=== PATIENT | female | born 1985 | race Caucasian/White ===

== ENCOUNTER 2017-12-09 22:14 | Emergency (ER) | payer SELFPAY ==
[2017-12-09 22:27] VITALS: BP 136/90
--- NOTE | 2017-12-09 22:28 | EDPHY ---
H & P Stated Complaint: cat scratches to all extremities and pelvis area. Time Seen by Provider: 12/09/17 22:28 HPI/ROS: HPI CHIEF COMPLAINT: Multiple cat scratches HISTORY OF PRESENT ILLNESS: This is a very pleasant 31-year-old female, she is otherwise healthy denies significant medical history except for migraines, presents to the emergency room, after her own personal CT she was walking on the leash and a dog came up to them this caused the CT to jump into her lap and arms and scratching her bilateral forearms, and groin region. She denies the cab biting her. She has some mild redness on the scratches around her arms, additionally on the right 3rd digit there is some erythema. Appears to look like an early paronychia however patient denies this and states the cat scratched her on this finger. There is no evidence of deep space hand infection on exam and no evidence of sausage digit. However I explained to the patient she should watch this area very closely. Do warm compresses take Augmentin as prescribed. Additionally if she has worsening symptoms including pain, fever, swelling, redness or not doing well she should return emergency room immediately she understands this. Patient is checking to see if her tetanus shot is up-to-date. Past Medical History: Migraine headache Past Surgical History: No recent surgery Social History: Denies drugs, alcohol, tobacco. Family History: Noncontributory ROS REVIEW OF SYSTEMS: 10 Systems were reviewed and negative with the exception of the elements mentioned in the history of present illness. Exam Constitutional triage nursing summary reviewed, vital signs reviewed, awake/ alert. Eyes normal conjunctivae and sclera, EOMI, PERRLA. HENT normal inspection, atraumatic, moist mucus membranes, no epistaxis, neck supple/ no meningismus, no raccoon eyes. Respiratory clear to auscultation bilaterally, normal breath sounds, no respiratory distress, no wheezing. Cardiovascular rate normal, regular rhythm, no murmur, no edema, distal pulses normal. Gastrointestinal soft, non-tender, no rebound, no guarding, normal bowel sounds, no distension, no pulsatile mass. Genitourinary no CVA tenderness. Musculoskeletal bilateral upper extremities forms multiple scratches, minimal erythema, additionally right hand 3rd digit distal aspect around the cuticle or nail bed there is some erythema. Patient denies cat bite to this area states this is where it scratched her. No evidence of flexor tenosynovitis or sausage digit on exam. no midline vertebral tenderness, full range of motion, no calf swelling, no tenderness of extremities, no meningismus, good pulses, neurovascularly intact. Skin please see above but multiple cat scratches. Also has some cat scratch to superficial groin area. Neurologic awake, alert and oriented x 3, AAOx3, moves all 4 extremities equally, motor intact, sensory intact, CN II-XII intact, normal cerebellar, normal vision, normal speech. Psychiatric normal mood/affect. Heme/Lymph/Immune no lymphadenopathy. Differential Diagnosis: Includes but is not limited to in a particular order multiple scratch bowen from a CAT comma scale cat scratch fever, infection. Medical Decision Making: Plan for this patient recommend she does warm soaks of her right hand, additionally antibiotics as prescribed Augmentin, watch closely for worsening symptoms including redness, fever, pain, swelling. Patient denies any cat bite. Tetanus shot will be updated here in the emergency room if she confirms that it is not up-to-date. She is checking. Return precautions discussed with the patient she understands. Patient understands watch her right hand specifically 3rd finger closely if worsening swelling, pain, drainage, fever she understands return emergency room. At this time no evidence of deep space hand infection or flexor tenosynovitis. Source: Patient - Personal History LMP (Females 10-55): 22-28 Days Ago Current Tetanus Diphtheria and Acellular Pertussis (TDAP): Unsure - Medical/Surgical History Hx Asthma: No Hx Chronic Respiratory Disease: No Hx Diabetes: No Hx Cardiac Disease: No Hx Renal Disease: No Hx Cirrhosis: No Hx Alcoholism: No Hx HIV/AIDS: No Hx Splenectomy or Spleen Trauma: No Other PMH: migraines - Social History Smoking Status: Never smoked Constitutional: Initial Vital Signs Temperature (C) 36.7 C 12/09/17 22:24 Heart Rate 108 H 12/09/17 22:24 Respiratory Rate 16 12/09/17 22:24 Blood Pressure 136/90 H 12/09/17 22:24 O2 Sat (%) 98 12/09/17 22:24 O2 Delivery Mode Room Air Allergies/Adverse Reactions: No Known Allergies Allergy (Unverified 12/09/17 22:24) Home Medications: Medication Instructions Recorded Amitriptyline HCl 12/09/17 Amoxicillin/Clavulanate Pot 875 mg PO BID #14 tab 12/09/17 [Augmentin 875 MG TAB (*)] Ibuprofen [Motrin (*)] 800 mg PO Q6-8PRN #10 tab 12/09/17 Mirtazapine 12/09/17 Departure - Departure Disposition: Home, Routine, Self-Care Clinical Impression: Cat scratch Condition: Good Instructions: Cat Scratch Disease (ED) Additional Instructions: 1. Recommend warm compresses 2. Recommend antibiotics as prescribed 3. Watch pole of the your areas closely for worsening infection this includes increasing pain, redness, swelling. If you feel like your doing worse return to the emergency room. Referrals: NONE *PRIMARY CARE P,. [Primary Care Provider] - As per Instructions Prescriptions: Amoxicillin/Clavulanate Pot [Augmentin 875 MG TAB (*)] 875 mg PO BID #14 tab Ibuprofen [Motrin (*)] 800 mg PO Q6-8PRN #10 tab
[2017-12-09] MEDS ORDERED: IBUPROFEN 800 MG TAB PO ONE (22:32)
[2017-12-09] MEDS ORDERED: AMOXICILLIN/CLAVULANATE POT 875/125 MG TAB PO ONE (22:32)
[2017-12-09] MEDS ORDERED: TDAP ADULT 0.5 ML INJ (BOOSTRIX) IM ONE (22:45)
== END 2017-12-09 22:55 | disposition home or self-care (01) ==
DX: S59.912A Unspecified injury of left forearm, initial encounter (principal); S59.911A Unspecified injury of right forearm, initial encounter; S39.91XA Unspecified injury of abdomen, initial encounter; W55.03XA Scratched by cat, initial encounter; Y93.K1 Activity, walking an animal

== ENCOUNTER 2018-06-20 20:07 | Emergency (ER) | payer OTHER ==
--- NOTE | 2018-06-20 20:48 | EDPHY ---
H & P Time Seen by Provider: 06/20/18 20:47 HPI/ROS: Chief complaint. Migraine HPI. 32-year-old female with 4 days migraine headache. She describes as typical migraine headache. She does not get a preceding aura. She has had nausea vomiting. No recent illness or fever. No recent head injury. History of migraines. No focal weakness or paresthesias. [id number] medication without relief ROS 10 systems were reviewed and negative with the exception of the elements mentioned in the history of present illness Past Medical/Surgical History: Migraines Social History: Single, nonsmoker, no alcohol Smoking Status: Never smoked Physical Exam: General Appearance: Alert well-developed female mild distress vital signs are stable. Afebrile Eyes: Pupils equal and round no pallor or injection. ENT, Mouth: Mucous membranes are moist. Respiratory: There are no retractions, lungs are clear to auscultation. Cardiovascular: Regular rate and rhythm. Gastrointestinal: Abdomen is soft and nontender, no masses, bowel sounds normal. Neurological: Awake and alert, sensory and motor exams grossly normal. Skin: Warm and dry, no rashes. Musculoskeletal: Neck is supple nontender. Extremities symmetrical, full range of motion. Psychiatric: Patient is oriented X 3, there is no agitation. Constitutional: Initial Vital Signs Temperature (C) 36.7 C 06/20/18 20:10 Heart Rate 75 06/20/18 20:10 Respiratory Rate 16 06/20/18 20:10 Blood Pressure 125/90 H 06/20/18 20:10 O2 Sat (%) 97 06/20/18 20:10 O2 Delivery Mode Room Air Allergies/Adverse Reactions: No Known Allergies Allergy (Unverified 12/09/17 22:24) Home Medications: Medication Instructions Recorded Ibuprofen [Motrin (*)] 800 mg PO Q6-8PRN #10 tab 12/09/17 Benadryl 06/20/18 Excedrin Migraine Geltab 06/20/18 Tylenol 06/20/18 Medical Decision Making Procedures: IV normal saline Toradol, Reglan, Benadryl, Decadron IV re-evaluation at 9:50 p.m.. Patient complains of continuing headache. Tylenol orally. Ketamine IV ED Course/Re-evaluation: Re-evaluation 11:40 p.m. Patient's headache is much better controlled. She feels well to be discharged. She will be observed until ketamine is completely worn off. She and I discussed treatment plan including criteria for return importance of follow-up further evaluation. She expresses understanding and agreement Differential Diagnosis: Migraine headache in a patient with history of migraines. No evidence of infection or meningitis - Data Points Laboratory Results: Laboratory Results 06/20/18 20:30 06/20/18 20:30 06/20/18 06/20/18 06/20/18 20:30 20:30 20:30 WBC 7.82 10^3/uL 10^3/uL (3.80-9.50) RBC 4.29 10^6/uL 10^6/uL (4.18-5.33) Hgb 13.6 g/dL g/dL (12.6-16.3) Hct 40.8 % % (38.0-47.0) MCV 95.1 fL fL (81.5-99.8) MCH 31.7 pg pg (27.9-34.1) MCHC 33.3 g/dL g/dL (32.4-36.7) RDW 12.4 % % (11.5-15.2) Plt Count 347 10^3/uL 10^3/uL (150-400) MPV 10.3 fL fL (8.7-11.7) Neut % (Auto) 60.3 % % (39.3-74.2) Lymph % (Auto) 29.8 % % (15.0-45.0) [place] % (Auto) 6.5 % % (4.5-13.0) Eos % (Auto) 2.4 % % (0.6-7.6) Baso % (Auto) 0.6 % % (0.3-1.7) Nucleat RBC Rel Count 0.0 % % (0.0-0.2) Absolute Neuts (auto) 4.71 10^3/uL 10^3/uL (1.70-6.50) Absolute Lymphs (auto) 2.33 10^3/uL 10^3/uL (1.00-3.00) Absolute Monos (auto) 0.51 10^3/uL 10^3/uL (0.30-0.80) Absolute Eos (auto) 0.19 10^3/uL 10^3/uL (0.03-0.40) Absolute Basos (auto) 0.05 10^3/uL 10^3/uL (0.02-0.10) Absolute Nucleated RBC 0.00 10^3/uL 10^3/uL (0-0.01) Immature Gran % 0.4 % % (0.0-1.1) Immature Gran # 0.03 10^3/uL 10^3/uL (0.00-0.10) Sodium 139 mEq/L mEq/L (135-145) Potassium 4.2 mEq/L mEq/L (3.5-5.2) Chloride 102 mEq/L mEq/L (97-110) Carbon Dioxide 27 mEq/l mEq/l (22-31) Anion Gap 10 mEq/L mEq/L (6-14) BUN 13 mg/dL mg/dL (7-23) Creatinine 0.7 mg/dL mg/dL (0.6-1.0) Estimated GFR > 60 Glucose 94 mg/dL mg/dL (70-100) Calcium 9.7 mg/dL mg/dL (8.5-10.4) Beta HCG, Qual NEGATIVE Medications Given: Magnesium Sulfate/Dextrose (Magnesium Sulf 1 Gm (Premix)) 100 mls @ 100 mls/hr IV EDNOW ONE Stop: 06/20/18 23:50 Last Admin: 06/20/18 23:08 Dose: 100 mls Discontinued Medications Acetaminophen (Tylenol) 1,000 mg PO EDNOW ONE Stop: 06/20/18 22:52 Last Admin: 06/20/18 23:07 Dose: 1,000 mg Dexamethasone (Decadron Injection) 10 mg IVP EDNOW ONE Stop: 06/20/18 20:58 Last Admin: 06/20/18 21:23 Dose: 10 mg Diphenhydramine HCl (Benadryl Injection) 25 mg IVP EDNOW ONE Stop: 06/20/18 20:58 Last Admin: 06/20/18 21:23 Dose: 25 mg Fentanyl (Sublimaze) 100 mcg IVP EDNOW ONE Stop: 06/20/18 22:00 Last Admin: 06/20/18 22:03 Dose: 100 mcg Haloperidol Lactate (Haldol Injection) 2.5 mg IVP EDNOW ONE Stop: 06/20/18 22:52 Last Admin: 06/20/18 23:08 Dose: 2.5 mg Sodium Chloride (Ns) 1,000 mls @ 0 mls/hr IV ONCE ONE; Wide Open PRN Reason: Protocol Stop: 06/20/18 20:58 Last Admin: 06/20/18 21:23 Dose: 1,000 mls Ketamine HCl (Ketamine) 9.1 mg 0.2 mg/kg (9.1 mg) IVP EDNOW ONE Stop: 06/20/18 22:56 Last Admin: 06/20/18 23:08 Dose: 9.1 mg Ketorolac Tromethamine (Toradol) 30 mg IVP EDNOW ONE Stop: 06/20/18 20:58 Last Admin: 06/20/18 21:23 Dose: 30 mg Metoclopramide HCl (Reglan Injection) 10 mg IVP EDNOW ONE Stop: 06/20/18 20:58 Last Admin: 06/20/18 21:23 Dose: 10 mg Departure - Departure Disposition: Home, Routine, Self-Care Clinical Impression: Migraine headache Qualifiers: Migraine type: unspecified Status migrainosus presence: with status migrainosus Intractability: not intractable Qualified Code(s): G43.901 - Migraine, unspecified, not intractable, with status migrainosus Condition: Good Instructions: Migraine Headache (ED) Additional Instructions: Tylenol 650 mg every 6 hr, ibuprofen 400 mg every 6 hr as needed for headache Return for worsening symptoms Follow-up with Neurology for migraine headache management Referrals: NONE *PRIMARY CARE P,. [Primary Care Provider] - As per Instructions Ja Rodrigues MD [Medical Doctor] - 2-3 days, call for appt.
[2018-06-20] MEDS ORDERED: NS 1,000 ML IV ONE (20:57)
[2018-06-20] MEDS ORDERED: DEXAMETHASONE 10 MG/ML VIAL IVP ONE (20:57)
[2018-06-20] MEDS ORDERED: KETOROLAC 30 MG/1 ML SDV IVP ONE (20:57)
[2018-06-20] MEDS ORDERED: METOCLOPRAMIDE 10 MG/2 ML VIAL IVP ONE (20:57)
[2018-06-20] MEDS ORDERED: fentaNYL 100 MCG/2 ML INJ IVP ONE (21:59)
[2018-06-20 22:05] LABS: PLATELET COUNT 347 10^3/uL (150-400)
[2018-06-20] MEDS ORDERED: MAGNESIUM SULF 1 GM/DEXTROSE 100 ML IV ONE (22:51)
[2018-06-20] MEDS ORDERED: HALOPERIDOL LACT 5 MG/ML INJ IVP ONE (22:51)
[2018-06-20] MEDS ORDERED: ACETAMINOPHEN 500 MG TAB PO ONE (22:51)
[2018-06-20] MEDS ORDERED: KETAMINE 500 MG/10 ML VIAL IVP ONE (22:55)
[2018-06-21 00:22] VITALS: BP 112/84
== END 2018-06-21 00:21 | disposition home or self-care (01) ==
DX: G43.901 Migraine, unspecified, not intractable, with status migrainosus (principal); E86.9 Volume depletion, unspecified
CPT/HCPCS: 96374; J1100; J1200; J1630; J1885; J2765; J3010; J3475

== ENCOUNTER 2018-07-01 14:55 | Emergency (ER) | payer OTHER ==
[2018-07-01] MEDS ORDERED: NS 500 ML IV ONE (15:04)
--- NOTE | 2018-07-01 15:43 | EDPHY ---
H & P Time Seen by Provider: 07/01/18 15:04 HPI/ROS: HPI Abdominal pain, vomiting and diarrhea. 32-year-old female by private vehicle. This patient reports that for the last 3 days she has had generalized abdominal pain described as cramping and throughout her abdomen with multiple episodes of nonbilious, nonbloody vomiting and multiple episodes of watery diarrhea. She denies bloody or melenic stool. No recent foreign travel. Denies change in diet. No new medications. No ill contacts. Last menstrual period was 1 month ago. ROS: Constitutional: No fever, no chills. No weakness. Eyes: No discharge. No changes in vision. ENT: No sore throat. No nasal congestion or rhinorrhea. Respiratory: No cough. No shortness of breath. Cardiac: No chest pain, no palpitations. Gastrointestinal: As above. Genitourinary: No hematuria. No dysuria or increased frequency with urination. Musculoskeletal: No back pain. No neck pain. No myalgias or arthralgias. Skin: No rashes. Neurological: No headache. No focal weakness or altered sensation. Past medical history: Migraine headaches. Social history: Nonsmoker. No alcohol. Here by herself. Physical Exam: General Appearance: Alert, anxious. This patient is responding to questions appropriately and in full sentences. This patient appears well-hydrated and well-nourished. Eyes: Pupils equal and round no pallor or injection. No lid edema, erythema or injection. Respiratory: There are no retractions, lungs are clear to auscultation with good air movement bilaterally. Cardiovascular: Regular rate and rhythm. Mild tachycardia. No murmur. Gastrointestinal: Abdomen is soft with mild and vague tenderness on palpation throughout, no masses, bowel sounds normal. No focal tenderness at McBurney's point. No Grubbs sign. Neurological: Motor sensory function is grossly intact. Cranial nerves are normal. Gait is normal. Skin: Warm and dry, no rashes. Musculoskeletal: Neck is supple and nontender. Extremities are symmetrical. All joints range without pain or impingement. Psychiatric: No agitation. No depression. Database: EKG: Imaging: Procedures: Emergency department course: Triage vital signs reviewed. She is mildly tachycardic. Vital signs are otherwise normal. She is afebrile. IV was placed. She was started on IV normal saline with 1-2 L to be given over the next 1-2 hours. She will initially be given 20 mg of IV Pepcid, 12.5 mg of IV push Phenergan and 4 mg of IV Zofran. 5:00 p.m., the patient was re-evaluated, she was sleeping and appeared comfortable. She was easily arousable. She tells me that her nausea is better but she is still feeling generalized abdominal pain described as cramping. She is asking for some pain medication. She has no contraindications to NSAIDs. She has a normal creatinine. She will be given 30 mg of IV Toradol. 6:30 p.m., the patient was re-evaluated, she appears comfortable at this time. Repeat abdominal exam she is soft, nontender nondistended. She has had asked me for narcotic pain medications several times. I do not feel she requires these medications. She has a benign abdomen. She has been tolerating oral fluids. I agreed to prescribe her a few Tylenol with codeine tablets. She feels comfortable going home. I will also prescribe her some Phenergan for nausea. Follow-up and return to emergency department precautions have been reviewed with her. All of her questions were answered. She was discharged from the emergency department in good condition. Differential Diagnosis: The differential diagnosis on this patient includes but is not limited to food borne illness, viral gastroenteritis. Appendicitis, cholecystitis, bowel obstruction, other surgical etiology unlikely. This represents a partial list of diagnoses considered. These considerations are based on history, physical exam, past history, reassessment and diagnostic testing. Smoking Status: Never smoked Constitutional: Initial Vital Signs Temperature (C) 36.7 C 07/01/18 15:06 Heart Rate 111 H 07/01/18 15:06 Respiratory Rate 18 07/01/18 15:06 Blood Pressure 138/107 H 07/01/18 15:06 O2 Sat (%) 100 07/01/18 15:06 O2 Delivery Mode Room Air Allergies/Adverse Reactions: No Known Allergies Allergy (Unverified 07/01/18 15:08) Home Medications: Medication Instructions Recorded Ibuprofen [Motrin (*)] 800 mg PO Q6-8PRN #10 tab 12/09/17 Benadryl 06/20/18 Excedrin Migraine Geltab 06/20/18 Tylenol 06/20/18 Acetaminophen with Codeine 1 tab PO Q4-6PRN PRN #7 tab 07/01/18 [Tylenol #3] Promethazine HCl [Phenergan 25mg 25 mg PO Q4-6PRN PRN #12 tab 07/01/18 (*)] Medical Decision Making - Data Points Laboratory Results: Laboratory Results 07/01/18 15:40 07/01/18 15:40 07/01/18 07/01/18 07/01/18 15:40 15:40 15:40 WBC 9.21 10^3/uL 10^3/uL (3.80-9.50) RBC 4.24 10^6/uL 10^6/uL (4.18-5.33) Hgb 13.4 g/dL g/dL (12.6-16.3) Hct 39.1 % % (38.0-47.0) MCV 92.2 fL fL (81.5-99.8) MCH 31.6 pg pg (27.9-34.1) MCHC 34.3 g/dL g/dL (32.4-36.7) RDW 12.6 % % (11.5-15.2) Plt Count 355 10^3/uL 10^3/uL (150-400) MPV 9.8 fL fL (8.7-11.7) Neut % (Auto) 67.3 % % (39.3-74.2) Lymph % (Auto) 22.5 % % (15.0-45.0) [place] % (Auto) 8.4 % % (4.5-13.0) Eos % (Auto) 1.1 % % (0.6-7.6) Baso % (Auto) 0.4 % % (0.3-1.7) Nucleat RBC Rel Count 0.0 % % (0.0-0.2) Absolute Neuts (auto) 6.20 10^3/uL 10^3/uL (1.70-6.50) Absolute Lymphs (auto) 2.07 10^3/uL 10^3/uL (1.00-3.00) Absolute Monos (auto) 0.77 10^3/uL 10^3/uL (0.30-0.80) Absolute Eos (auto) 0.10 10^3/uL 10^3/uL (0.03-0.40) Absolute Basos (auto) 0.04 10^3/uL 10^3/uL (0.02-0.10) Absolute Nucleated RBC 0.00 10^3/uL 10^3/uL (0-0.01) Immature Gran % 0.3 % % (0.0-1.1) Immature Gran # 0.03 10^3/uL 10^3/uL (0.00-0.10) Sodium 135 mEq/L mEq/L (135-145) Potassium 4.1 mEq/L mEq/L (3.5-5.2) Chloride 100 mEq/L mEq/L (97-110) Carbon Dioxide 23 mEq/l mEq/l (22-31) Anion Gap 12 mEq/L mEq/L (6-14) BUN 6 mg/dL L mg/dL (7-23) Creatinine 0.7 mg/dL mg/dL (0.6-1.0) Estimated GFR > 60 Glucose 99 mg/dL mg/dL (70-100) Calcium 9.6 mg/dL mg/dL (8.5-10.4) Total Bilirubin 0.5 mg/dL mg/dL (0.1-1.4) Conjugated Bilirubin 0.3 mg/dL mg/dL (0.0-0.5) Unconjugated Bilirubin 0.2 mg/dL mg/dL (0.0-1.1) AST 19 IU/L IU/L (14-46) ALT 34 IU/L IU/L (9-52) Alkaline Phosphatase 54 IU/L IU/L (38-126) Total Protein 7.0 g/dL g/dL (6.3-8.2) Albumin 4.5 g/dL g/dL (3.5-5.0) Lipase 105 IU/L IU/L (23-300) Beta HCG, Qual NEGATIVE Urine Color Urine Appearance Urine pH Ur Specific [place] Urine Protein Urine Ketones Urine Blood Urine Nitrate Urine Bilirubin Urine Urobilinogen Ur Leukocyte Esterase Urine RBC Urine WBC Ur Epithelial Cells Urine Glucose 07/01/18 15:30 WBC RBC Hgb Hct MCV MCH MCHC RDW Plt Count MPV Neut % (Auto) Lymph % (Auto) [place] % (Auto) Eos % (Auto) Baso % (Auto) Nucleat RBC Rel Count Absolute Neuts (auto) Absolute Lymphs (auto) Absolute Monos (auto) Absolute Eos (auto) Absolute Basos (auto) Absolute Nucleated RBC Immature Gran % Immature Gran # Sodium Potassium Chloride Carbon Dioxide Anion Gap BUN Creatinine Estimated GFR Glucose Calcium Total Bilirubin Conjugated Bilirubin Unconjugated Bilirubin AST ALT Alkaline Phosphatase Total Protein Albumin Lipase Beta HCG, Qual Urine Color PALE YELLOW Urine Appearance CLEAR Urine pH 6.0 (5.0-7.5) Ur Specific [place] 1.002 (1.002-1.030) Urine Protein NEGATIVE (NEGATIVE) Urine Ketones NEGATIVE (NEGATIVE) Urine Blood NEGATIVE (NEGATIVE) Urine Nitrate NEGATIVE (NEGATIVE) Urine Bilirubin NEGATIVE (NEGATIVE) Urine Urobilinogen NEGATIVE EU EU (0.2-1.0) Ur Leukocyte Esterase NEGATIVE (NEGATIVE) Urine RBC 1-3 /hpf /hpf (0-3) Urine WBC 1-3 /hpf /hpf (0-3) Ur Epithelial Cells TRACE /lpf /lpf (NONE-1+) Urine Glucose NEGATIVE (NEGATIVE) Medications Given: Discontinued Medications Sodium Chloride (Ns) 500 mls @ 0 mls/hr IV EDNOW ONE; Wide Open PRN Reason: Protocol Stop: 07/01/18 15:05 Last Admin: 07/01/18 15:33 Dose: 500 mls Sodium Chloride (Ns) 1,000 mls @ 0 mls/hr IV EDNOW ONE; Wide Open PRN Reason: Protocol Stop: 07/01/18 15:45 Last Admin: 07/01/18 15:56 Dose: 1,000 mls Famotidine/Sodium Chloride (Pepcid 20 Mg (Premix)) 50 mls @ 200 mls/hr IV EDNOW ONE Stop: 07/01/18 15:58 Last Admin: 07/01/18 15:52 Dose: Not Given Ketorolac Tromethamine (Toradol) 30 mg IVP EDNOW ONE Stop: 07/01/18 17:03 Last Admin: 07/01/18 17:51 Dose: 30 mg Ondansetron HCl (Zofran) 4 mg IVP EDNOW ONE Stop: 07/01/18 15:45 Last Admin: 07/01/18 15:53 Dose: Not Given Promethazine HCl (Phenergan) 12.5 mg IVP EDNOW ONE Stop: 07/01/18 15:45 Last Admin: 07/01/18 15:53 Dose: 12.5 mg Departure - Departure Disposition: Home, Routine, Self-Care Clinical Impression: Gastroenteritis Condition: Good Instructions: Gastroenteritis (ED) Additional Instructions: Read and follow provided instructions. Follow-up with your primary care physician on Tuesday for re-evaluation. Take medication as prescribed for nausea. Return to the emergency department for worsening symptoms, worsening abdominal pain, vomiting and inability to keep fluids down despite medication, fever or other serious concerns. Referrals: NONE *PRIMARY CARE P,. [Primary Care Provider] - As per Instructions Prescriptions: Acetaminophen with Codeine [Tylenol #3] 1 tab PO Q4-6PRN PRN #7 tab PRN Reason: Pain, Moderate Promethazine HCl [Phenergan 25mg (*)] 25 mg PO Q4-6PRN PRN #12 tab PRN Reason: For Nausea & Vomiting
[2018-07-01] MEDS ORDERED: ONDANSETRON 4 MG/2 ML VIAL IVP ONE (15:44)
[2018-07-01] MEDS ORDERED: FAMOTIDINE 20 MG/NACL 50 ML IV ONE (15:44)
[2018-07-01] MEDS ORDERED: NS 1,000 ML IV ONE (15:44)
[2018-07-01] MEDS ORDERED: PROMETHAZINE HCL 25 MG/ML INJ IVP ONE (15:44)
[2018-07-01 15:52] LABS: PLATELET COUNT 355 10^3/uL (150-400)
[2018-07-01] MEDS: KETOROLAC 30 MG/1 ML SDV IVP ONE ×2 (17:27→17:51)
[2018-07-01 17:41] VITALS: BP 106/61
== END 2018-07-01 19:25 | disposition home or self-care (01) ==
DX: K52.9 Noninfective gastroenteritis and colitis, unspecified (principal); E86.9 Volume depletion, unspecified
CPT/HCPCS: 96374; J1885; J2405; J2550